=== PATIENT | female | born 1970 | race Caucasian/White ===

== ENCOUNTER 2018-01-13 11:16 | Emergency (ER) | payer OTHER ==
[~2018-01-13] VITALS: Ht 167.6 cm; Wt 61.2 kg
[~2018-01-13 11:16] MED LIST: BACTRIM,SEPT1 TABLET PO; CIPRO500 MG PO; IBUPROFEN400 MG PO; NAPROSYN500 MG PO; NORCO 7.5/321 TABLET PO; TYLENOL EXTRA500 MG PO
[2018-01-13 12:23] LABS: APPEARANCE CLEAR ((CLEAR)); BILIRUBIN NEGATIVE; BLOOD SMALL; COLOR STRAW ((YELLOW)); GLUCOSE (STRIP) NEGATIVE; KETONES NEGATIVE; LEUKOCYTES NEGATIVE; NITRITE NEGATIVE; PROTEIN (STRIP) NEGATIVE; SPECIFIC GRAVITY 1.003 (1.000-1.030); UROBILINOGEN 0.2 MG/DL (0.2-1.0)
[2018-01-13 12:28] LABS: BACTERIA NONE SEEN /HPF; EPITHELIAL CELLS RARE /HPF; MUCUS NONE SEEN /LPF; RED BLOOD CELLS 0-5 /HPF (0-5); UCUL ADDED? NO; WHITE BLOOD CELLS NONE SEEN /HPF (0-5)
[2018-01-13 12:38] LABS: HEMATOCRIT 43.2 % (36.0-46.0); HEMOGLOBIN 14.9 G/DL (11.9-15.5); MCHC 34.5 G/DL (30.0-36.0); MCV 92.7 FL (83-99); PLATELET COUNT 279 K/uL (156-360); RBC DIS.WIDTH-CV 13.2 % (11.8-14.6); RBC DIS.WIDTH-SD 45.1 % (39-53); RED BLOOD COUNT 4.66 M/uL (3.80-5.20); WHITE BLOOD COUNT 8.2 K/uL (4.1-10.2)
[2018-01-13 13:03] LABS: ALBUMIN 4.7 g/dL (3.2-4.8)
[2018-01-13 13:04] LABS: CHLORIDE 111 mEq/L (99-109); POTASSIUM 3.8 mEq/L (3.7-5.4); SODIUM 141 mEq/L (136-147)
[2018-01-13 13:06] LABS: GLUCOSE 118 mg/dL (70-99); TOTAL PROTEIN 8.3 g/dL (6.4-8.3)
[2018-01-13 13:09] LABS: ALKALINE PHOSPHATASE 73 IU/L (3-129)
[2018-01-13 13:10] LABS: CREATININE 0.7 mg/dL (0.6-1.3); GFR ESTIMATE (CALCULATED) > 59 mL/min/
[2018-01-13 13:11] LABS: AST (GOT) 21 IU/L (2-34); UREA NITROGEN (BUN) 11 mg/dL (9-23)
[2018-01-13 13:12] LABS: ALT (GPT) 17 IU/L (3-49)
[2018-01-13 13:22] LABS: QUANTITATIVE HCG < 4.0 MIU/ML
[2018-01-13 13:26] LABS: TROP-I INTERPRETATION NEGATIVE; TROPONIN-I < 0.01 ng/mL (0.0-0.30)
[2018-01-13] MEDS ORDERED: ZOFRAN4 MG SL (16:46)
[2018-01-13] MEDS ORDERED: NAPROSYN500 MG PO (16:46)
[2018-01-13] MEDS ORDERED: PERCOCET 5/31 TABLET PO (16:52)
[2018-01-13 17:12] VITALS: BP 146/88
== END 2018-01-13 17:14 | disposition home or self-care (01) ==
LOC: EME 11:16
DX: N70.11 Chronic salpingitis (principal); N83.202 Unspecified ovarian cyst, left side; F17.200 Nicotine dependence, unspecified, uncomplicated; Z98.51 Tubal ligation status; Z85.828 Personal history of other malignant neoplasm of skin
CPT/HCPCS: 71046; 76856; 80053; 81003; 84484; 84702; 85027; 93005; 99281; 99284; J1885; J2405; J7030

== ENCOUNTER 2018-01-16 06:53 | Day surgery (SDC) | payer OTHER ==
[~2018-01-16] VITALS: Ht 167.6 cm; Wt 63.0 kg
[~2018-01-16 06:53] MED LIST changes: +PERCOCET 5/31 TABLET PO; +ZOFRAN4 MG SL
[2018-01-16 07:23] VITALS: BP 119/71
[2018-01-16 07:54] LABS: BENZODIAZEPINES, URINE SCREEN Negative (200 ng/mL)
[2018-01-16] MEDS ORDERED: PERCOCET 5/31 TABLET PO (12:06)
[2018-01-16] MEDS ORDERED: MOTRIN800 MG PO (12:06)
[2018-01-16 14:05] VITALS: BP 117/56
[2018-01-16 15:54] VITALS: BP 121/57
== END 2018-01-16 16:15 | disposition home or self-care (01) ==
LOC: SDC
PROVIDERS: Obstetrics & Gynecology
DX: N70.11 Chronic salpingitis (principal); N73.6 Female pelvic peritoneal adhesions (postinfective); N83.202 Unspecified ovarian cyst, left side; N72 Inflammatory disease of cervix uteri; N80.0 Endometriosis of uterus; K66.0 Peritoneal adhesions (postprocedural) (postinfection); F17.210 Nicotine dependence, cigarettes, uncomplicated
CPT/HCPCS: 80306 90; 88307; J0690; J1100; J1170; J1885; J2001; J2405; J2710; J2795; J3010; J3475; J7643; Q0175; S0020

== ENCOUNTER 2018-04-30 18:35 | Emergency (ER) | payer OTHER ==
[~2018-04-30] VITALS: Ht 167.6 cm; Wt 57.8 kg
[~2018-04-30 18:35] MED LIST changes: +MOTRIN800 MG PO
[2018-04-30 19:45] LABS: HEMATOCRIT 41.7 % (36.0-46.0); HEMOGLOBIN 14.3 G/DL (11.9-15.5); MCH 32.4 PG (29.0-34.0); MCHC 34.3 G/DL (30.0-36.0); MCV 94.6 FL (83-99); RBC DIS.WIDTH-CV 12.9 % (11.8-14.6); RBC DIS.WIDTH-SD 44.8 % (39-53); RED BLOOD COUNT 4.41 M/uL (3.80-5.20); WHITE BLOOD COUNT 10.9 K/uL (4.1-10.2)
[2018-04-30 19:56] LABS: ALBUMIN 4.7 g/dL (3.2-4.8); CHLORIDE 106 mEq/L (99-109); SODIUM 138 mEq/L (136-147)
[2018-04-30 19:59] LABS: APPEARANCE CLEAR ((CLEAR)); BILIRUBIN NEGATIVE; BLOOD SMALL; COLOR YELLOW ((YELLOW)); GLUCOSE (STRIP) NEGATIVE; KETONES 5; LEUKOCYTES NEGATIVE; NITRITE NEGATIVE; PROTEIN (STRIP) NEGATIVE; SPECIFIC GRAVITY 1.017 (1.000-1.030); UROBILINOGEN 0.2 MG/DL (0.2-1.0)
[2018-04-30 19:59] LABS: GLUCOSE 119 mg/dL (70-99); TOTAL PROTEIN 8.3 g/dL (6.4-8.3)
[2018-04-30 20:01] LABS: TOTAL BILIRUBIN 0.9 mg/dL (0.0-1.0)
[2018-04-30 20:02] LABS: ALKALINE PHOSPHATASE 76 IU/L (3-129); CREATININE 0.8 mg/dL (0.6-1.3); GFR ESTIMATE (CALCULATED) > 59 mL/min/
[2018-04-30 20:03] LABS: UREA NITROGEN (BUN) 14 mg/dL (9-23)
[2018-04-30 20:04] LABS: AST (GOT) 22 IU/L (2-34)
[2018-04-30 20:05] LABS: ALT (GPT) 18 IU/L (3-49)
[2018-04-30 20:06] LABS: QUANTITATIVE HCG < 4.0 MIU/ML
[2018-04-30 20:09] LABS: BACTERIA RARE /HPF; EPITHELIAL CELLS RARE /HPF; MUCUS TRACE /LPF; UCUL ADDED? NO; WHITE BLOOD CELLS 0-5 /HPF (0-5)
[2018-04-30 20:41] LABS: PLAT.SUFFICIENCY ADEQUATE
[2018-04-30 20:44] LABS: AMPHETAMINE NEGATIVE (500 ng/mL); BARBITURATES NEGATIVE (200 ng/mL); BENZODIAZEPINES NEGATIVE (150 ng/mL); BUPRENORPHINE NEGATIVE (10 ng/mL); COCAINE NEGATIVE (150 ng/mL); METHADONE NEGATIVE (200 ng/mL); METHAMPHETAMINE NEGATIVE (500 ng/mL); OPIATES (MORPHINE) NEGATIVE (100 ng/mL); OXYCODONE PRESUMPTIVE POSITIVE (100 ng/mL); PHENCYCLIDINE NEGATIVE (25 ng/mL); PROPOXYPHENE NEGATIVE (300 ng/mL); THC CANNABINOIDS PRESUMPTIVE POSITIVE (50 ng/mL); TRICYCLIC ANTIDEPRESSANTS NEGATIVE (300 ng/mL)
[2018-04-30 20:47] LABS: PLATELET COUNT 263 K/uL (156-360)
[2018-04-30] MEDS ORDERED: THERAGEN60 GM TP (23:21)
[2018-04-30] MEDS ORDERED: INDOCIN50 MG PO (23:24)
[2018-04-30 23:38] VITALS: BP 126/73
== END 2018-04-30 23:42 | disposition home or self-care (01) ==
LOC: EME 18:35
PROVIDERS: Physician Assistant
DX: R10.2 Pelvic and perineal pain (principal); G89.29 Other chronic pain; N83.201 Unspecified ovarian cyst, right side; F17.200 Nicotine dependence, unspecified, uncomplicated; Z90.710 Acquired absence of both cervix and uterus; Z85.828 Personal history of other malignant neoplasm of skin
CPT/HCPCS: 74018; 76856; 80053; 81003; 84702; 84999; 85027; 99281; 99284; J3010; Q0177

== ENCOUNTER 2018-05-08 17:39 | Emergency (ER) | payer OTHER ==
[~2018-05-08] VITALS: Ht 167.6 cm; Wt 57.2 kg
[~2018-05-08 17:39] MED LIST changes: +INDOCIN50 MG PO; +THERAGEN60 GM TP
[2018-05-08 19:07] LABS: APPEARANCE CLEAR ((CLEAR)); BILIRUBIN NEGATIVE; BLOOD SMALL; COLOR COLORLESS ((YELLOW)); GLUCOSE (STRIP) NEGATIVE; KETONES NEGATIVE; LEUKOCYTES NEGATIVE; NITRITE NEGATIVE; PROTEIN (STRIP) NEGATIVE; SPECIFIC GRAVITY 1.005 (1.000-1.030); UROBILINOGEN 0.2 MG/DL (0.2-1.0)
[2018-05-08 19:11] LABS: HEMATOCRIT 40.7 % (36.0-46.0); HEMOGLOBIN 14.1 G/DL (11.9-15.5); MCH 32.9 PG (29.0-34.0); MCHC 34.6 G/DL (30.0-36.0); MCV 94.9 FL (83-99); PLATELET COUNT 236 K/uL (156-360); RBC DIS.WIDTH-CV 12.9 % (11.8-14.6); RBC DIS.WIDTH-SD 44.9 % (39-53); RED BLOOD COUNT 4.29 M/uL (3.80-5.20); WHITE BLOOD COUNT 10.7 K/uL (4.1-10.2)
[2018-05-08 19:12] LABS: BACTERIA NONE SEEN /HPF; EPITHELIAL CELLS NONE SEEN /HPF; MUCUS NONE SEEN /LPF; RED BLOOD CELLS 0-5 /HPF (0-5); UCUL ADDED? NO; WHITE BLOOD CELLS 0-5 /HPF (0-5)
[2018-05-08 19:13] LABS: ALBUMIN 4.6 g/dL (3.2-4.8); CHLORIDE 110 mEq/L (99-109); POTASSIUM 3.9 mEq/L (3.7-5.4); SODIUM 140 mEq/L (136-147)
[2018-05-08 19:15] LABS: GLUCOSE 100 mg/dL (70-99)
[2018-05-08 19:17] LABS: TOTAL BILIRUBIN 0.6 mg/dL (0.0-1.0)
[2018-05-08 19:19] LABS: ALKALINE PHOSPHATASE 70 IU/L (3-129); CREATININE 0.7 mg/dL (0.6-1.3); GFR ESTIMATE (CALCULATED) > 59 mL/min/
[2018-05-08 19:20] LABS: UREA NITROGEN (BUN) 12 mg/dL (9-23)
[2018-05-08 19:21] LABS: AST (GOT) 24 IU/L (2-34)
[2018-05-08 19:22] LABS: ALT (GPT) 30 IU/L (3-49)
[2018-05-08] MEDS ORDERED: PERCOCET 5/31 TABLET PO (20:48)
[2018-05-08] MEDS ORDERED: COLACE100 MG PO (20:48)
[2018-05-08 21:10] VITALS: BP 122/62
== END 2018-05-08 21:17 | disposition home or self-care (01) ==
LOC: EME 17:39
PROVIDERS: Physician Assistant
DX: N83.201 Unspecified ovarian cyst, right side (principal); R10.2 Pelvic and perineal pain; G89.29 Other chronic pain; Z90.710 Acquired absence of both cervix and uterus; Z90.721 Acquired absence of ovaries, unilateral; M54.9 Dorsalgia, unspecified; R06.02 Shortness of breath; N89.8 Other specified noninflammatory disorders of vagina; Z85.828 Personal history of other malignant neoplasm of skin; Z87.891 Personal history of nicotine dependence
CPT/HCPCS: 76856; 80053; 81003; 85027; 99281; 99285; J1885; J2270; J2765; J7030